=== PATIENT | male | born 1935 | race Caucasian/White ===

== ENCOUNTER 2017-11-18 10:49 | Inpatient (IN) | payer OTHER, MEDICARE ==
[~2017-11-18] VITALS: Ht 172.7 cm; Wt 65.3 kg
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
[2017-11-18 11:11] LABS: ABSOLUTE BASOPHIL COUNT 0 /CUMM (0.0-0.2); ABSOLUTE EOSINOPHIL COUNT 0.1 /CUMM (0.0-0.7); ABSOLUTE LYMPH COUNT 1.2 /CUMM (1.2-3.4); ABSOLUTE MONOCYTE COUNT 0.5 /CUMM (0.10-0.60); BASOPHIL % 0.8 % (0.0-2.0)
[2017-11-18 11:22] LABS: EOSINOPHIL % 1.1 % (0-5); GRANULOCYTE % 63.6 % (42.2-75.2); HEMATOCRIT 43.7 % (42-52); MEAN CORPUSCULAR HGB CONC 33.3 G/DL (33.0-37.0); MEAN CORPUSCULAR VOLUME 96.3 FL (80.0-94.0); MEAN PLATELET VOLUME 8.8 FL (7.4-10.4); PLATELET COUNT 192 /CUMM (130-400); RBC DISTRIBUTION WIDTH 13.8 % (11.5-14.5); RED BLOOD CELL CT 4.54 /CUMM (4.70-6.10)
[2017-11-18 11:42] LABS: WHITE BLOOD CELL COUNT 5.3 /CUMM (4.8-10.8)
--- NOTE | 2017-11-18 11:50 | CT SCAN REPORT ---
EXAMINATION: CT HEAD WITHOUT CONTRAST CLINICAL INFORMATION: Altered mental status. Violent outbursts. COMPARISON: None TECHNIQUE: Contiguous axial imaging was performed from the skull base to vertex without intravenous administration of contrast. DLP: 633 mGy-cm FINDINGS: There is no evidence of acute intracranial hemorrhage or territorial infarction. No abnormal mass effect or midline shift is seen. Stringer to white matter differentiation is well preserved. No extra-axial fluid collections are identified. There is moderate generalized prominence of the ventricles, sulci, and extra-axial CSF spaces as well as moderate hypoattenuation in the bihemispheric white matter. No acute osseous abnormality is visualized. The imaged paranasal sinuses demonstrate moderate mucosal thickening and some aerosolized secretions in the left sphenoid air cell. The mastoid air cells and middle ear cavities are clear. The visualized nasal cavity and nasopharynx appear clear. IMPRESSION: No acute intracranial pathology. Moderate chronic microangiopathy and volume loss. Moderate inflammatory disease within the left sphenoid air cell.
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
--- NOTE | 2017-11-18 18:12 | Admission Certification ---
Admission Certification Certification Statement - As attending physician, I certify that at the time of - admission, based on clinical presentation, severity of - symptoms, need for further diagnostic testing and - therapeutic interventions, and risk of adverse outcomes - without in-hospital treatment, in my clinical assessment, - this patient requires an acute hospital stay for a minimum - of two nights or longer. I have also considered psychsocial - factors such as support system, advanced age, financial - issues, cognitive issues, and failed out-patient treatments, - past re-admission history, safety of patient, and lack of - compliance as applicable. Specific rationale supporting this admission is: The patient presents with acute decline in mental status x 2 weeks with confusion, agitation/violent behavior in setting of early dementia. Delirium needs evaluation for cause- ? infection/etc. Psychiatry and Neurology consults. Admit to general medicine service. May need geriatric psychiatry.
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
[2017-11-18] MEDS ORDERED: FLOMAX0.4 M1 PO (18:50)
[2017-11-18] MEDS ORDERED: MELOXICAM7.5 M1 PO (18:50)
[2017-11-18] MEDS ORDERED: ARICEPT10 M1 PO (18:50)
[2017-11-18 21:37] VITALS: BP 166/90
[2017-11-19 03:40] VITALS: BP 146/88
[2017-11-19 06:20] VITALS: BP 134/76
--- NOTE | 2017-11-19 07:39 | PN- Housestaff ---
Natan FLYNN,Lisa 11/19/17 0739: Subjective Follow-up For: altered mental status -delirium secondary to acutely worsening FTD Subjective: patient notes he has a headache today. He is alert and oriented x 1, confused. no complaints, no events. Review of Systems Constitutional: Reports: no symptoms. Cardiovascular: Reports: no symptoms. Respiratory: Reports: no symptoms. Gastrointestinal: Reports: no symptoms. Neurological/Psychological: Reports: confusion. Objective Last 24 Hrs of Vital Signs/I&O Vital Signs Date Time Temp Pulse Resp B/P B/P Pulse O2 O2 Flow FiO2 Mean Ox Delivery Rate 11/19 1458 Room Air 11/19 1452 Room Air 11/19 1426 97.2 90 20 100/50 97 11/19 1000 98.7 88 20 130/77 96 11/19 0853 79 134/76 11/19 0852 79 134/76 11/19 0620 98.9 79 20 134/76 97 Room Air 11/19 0340 98.1 77 18 146/88 95 Room Air 11/18 2137 98.2 82 20 166/90 99 Room Air Intake & Output 11/19 1600 11/19 0800 11/19 0000 Intake Total 600 100 100 Output Total Balance 600 100 100 Intake, Oral 600 100 100 Patient 144 lb Weight Weight Bed scale Measurement Method Physical Exam General Appearance: Alert, Cooperative, No Acute Distress Skin Temp/Moisture Exam: Warm/Dry Sepsis Skin Exam (color): Normal for Ethnicity Cardiovascular: Regular Rate, Normal S1, Normal S2, No Murmurs Lungs: Clear to Auscultation, Normal Air Movement Abdomen: Normal Bowel Sounds, Soft, No Tenderness, No Hepatospenomegaly Neurological: Normal Speech Current Medications: Current Medications Sig/Valarie Start time Last Medication Dose Route Stop Time Status Admin Acetaminophen 650 MG .STK-MED ONE 11/19 0843 DC PO 11/19 0844 Acetaminophen 650 MG Q6P PRN 11/18 1900 AC 11/19 PO 0852 Acetaminophen 1,000 MG Q6P PRN 11/18 190 AC IV Amlodipine Besylate 5 MG DAILY 11/18 185 AC 11/19 PO 0853 Donepezil HCl 10 MG QPM 11/18 2200 AC 11/19 PO 2110 Enoxaparin Sodium 40 MG DAILY 11/18 1903 AC 11/19 SC 0852 Tamsulosin HCl 0.4 MG DAILY 11/18 1851 AC 11/19 PO 0852 Assessment/Plan Assessment: Patient is a 82-year-old male with past medical history significant for laryngeal carcinoma, dementia, hypertension, benign prostatic hypertrophy was sent to [place] due to acute change in mental status in the background of long- standing dementia and not compliant with medications. His condition has been progressively declining for the past 2 weeks however overnight became more combative and belligerent vital signs at time of admission are significant for high blood pressure, physical examination and labs are unremarkable. B12 normal, TSH 7. Most likely the patient's previously diagnosed dementia, worsened in the setting of non-compliance has resulted in acute behavioral change. Admitted to general medicine floor for evaluation and treatment of the following : Acute delirium Patient did have baseline dementia and not on medications as mentioned above. MMSE in the ER is 10/12 - signifies severe cognitive impairment. * Psych was consulted yesterday and states that the patient needs a comptency evaluation. * Family is afraid patient will hurt himself at home and is unable to care for himself. is terrified to stay with him. * As such, patient cannot leave AMA or otherwise * Causes of reversible dementia have so far been negative. WBC 5.3, chemistry WNL, except TSH 7.07H and FT4 0.94N (sublicinal hypothyroidism), Vitamin B12 > 1000. UA clear, and Utox negative. RPR and Lyme titer are pending. * CT head is negative. * Restart aricept when delirium clears. * As per psych, avoid benzos. He definitely think he might benefit from adding a small dose of antipsychotic agent. * Continue donepezil 10 mg daily * We have placed consult with neuro. They think the cause is worsening FTD which may be violent and verbally abusive. He will need placement as prognosis is not good in terms of cognition. * Consider continue memantine as per neuro recommendations History of BPH Continue tamsulosin Hypertension Start amlodipine 5 mg daily with holding parameters DVT prophylaxis Subcutaneous Lovenox CODE STATUS Full code Problem List: 1. Dementia 2. Acute delirium Pain Ratin Pain Location: na Pain Goal: Remain pain free Pain Plan: na Tomorrow's Labs & Rationales: Mathew Hodge 11/19/17 1258: Attending MD Review Statement Attending Statement Attending MD Statement: examined this patient, discuss w/resident/PA/SEALING AND CANCELING MACHINE OPERATOR, agreed w/resident/PA/SEALING AND CANCELING MACHINE OPERATOR, discussed with family, reviewed EMR data (avail), discussed with nursing, discussed with case mgmt, reviewed images, amended to note Attending Assessment/Plan: Patient seen/examined bedside. Patient is calm, he is forgetful. Sitter bedside for agitation episodes. Pysch and neurology has been consulted. Vitals stable. #Delirium/Dementia- progressive FTD Plan: Admit to general medical floor for evaluation of cause of delirium. Psychiatry consult- outpatient geriatric psych evaluation. Neuro consulted to evaluate dementia- recommend care home placement. May benefit from low-dose anti-psychotic. #HTN- patient with h/o HTN. Has not been on meds. BP may be elevated due to stress of being in hospital/agitation. Monitor #BPH- is normally on Tamsulosin. Plan: c/w Tamsulosin. Daughter is POA. Patient might benefit from care home placement for worsening dementia as per neurology. Consult case management.
[2017-11-19 10:00] VITALS: BP 130/77
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
[2017-11-19 14:26] VITALS: BP 100/50
[2017-11-19 22:27] VITALS: BP 132/70
--- NOTE | 2017-11-19 22:55 | Patient Discharge Instructions ---
Discharge Instructions General Discharge Information You were seen/treated for: ALTERED MENTAL STATUS Special Instructions: 1. PLEASE FOLLOW UP WITH PLASTERER SPOT Diet Continue normal diet: Yes Activity Full Activity/No Limits: Yes Acute Coronary Syndrome Inclusion Criteria At DC or during hospital stay patient has or had the following: ACS DIAGNOSIS No Discharge Core Measures Meds if any: Prescribed or Continued at Discharge Meds if any: NOT Prescribed or Continued at Discharge Congestive Heart Failure Inclusion Criteria At DC or during hospital stay patient has or had the following: CHF DIAGNOSIS No Discharge Core Measures Meds if any: Prescribed or Continued at Discharge Meds if any: NOT Prescribed or Continued at Discharge Cerebrovascular accident Inclusion Criteria At DC or during hospital stay patient has or had the following: CVA/TIA Diagnosis No Discharge Core Measures Meds if any: Prescribed or Continued at Discharge Meds if any: NOT Prescribed or Continued at Discharge Venous thromboembolism Inclusion Criteria VTE Diagnosis No VTE Type NONE VTE Confirmed by (Test) NONE Discharge Core Measures - Per Current guidelines, there needs to be overlap - treatment for the first 5 days of Warfarin therapy. - If discharged on Warfarin prior to 5 days of - overlap therapy, the patient will need to be - assessed for post discharge needs including - *Post discharge parental anticoagulation - *Warfarin and/or parental anticoagulation education - *Follow up date to check INR post discharge At least 5 days overlap therapy as Inpatient No Meds if any: Prescribed or Continued at Discharge Note: Overlap Therapy is Warfarin and Anticoagulant Meds if any: NOT Prescribed or Continued at Discharge
[2017-11-20 06:18] VITALS: BP 122/72
--- NOTE | 2017-11-20 07:47 | PN- Housestaff ---
Natan FLYNN,Lisa 11/20/17 0747: Subjective Follow-up For: altered mental status -delirium secondary to acutely worsening FTD Subjective: patient is still as confused as yesterday. overnight he was agitated and was put in a sanna which was later changed to soft restraints. Review of Systems Constitutional: Reports: no symptoms. Objective Last 24 Hrs of Vital Signs/I&O Vital Signs Date Time Temp Pulse Resp B/P B/P Pulse O2 O2 Flow FiO2 Mean Ox Delivery Rate 11/20 1020 Room Air 11/20 0618 97.5 79 20 122/72 97 Room Air 11/19 2227 98.1 81 20 132/70 97 Room Air 11/19 1458 Room Air 11/19 1452 Room Air 11/19 1426 97.2 90 20 100/50 97 Intake & Output 11/20 1600 11/20 0800 11/20 0000 Intake Total 100 100 Output Total Balance 100 100 Intake, Oral 100 100 Physical Exam General Appearance: Alert, Cooperative, No Acute Distress Cardiovascular: Regular Rate, Normal S1, Normal S2, No Murmurs Lungs: Clear to Auscultation, Normal Air Movement Abdomen: Normal Bowel Sounds, Soft, No Tenderness, No Hepatospenomegaly Neurological: Normal Speech Extremities: No Clubbing, No Cyanosis, No Edema, Normal Pulses, No Tenderness/ Swelling Current Medications: Current Medications Sig/Valarie Start time Last Medication Dose Route Stop Time Status Admin Acetaminophen 650 MG Q6P PRN 11/18 1900 AC 11/19 PO 0852 Acetaminophen 1,000 MG Q6P PRN 11/18 1900 AC IV Amlodipine Besylate 5 MG DAILY 11/18 1854 AC 11/20 PO 0911 Donepezil HCl 10 MG QPM 11/18 2200 AC 11/19 PO 2110 Enoxaparin Sodium 40 MG DAILY 11/18 1904 AC 11/20 SC 0911 Tamsulosin HCl 0.4 MG DAILY 11/18 185 AC 11/20 PO 0911 Assessment/Plan Assessment: Patient is a 82-year-old male with past medical history significant for laryngeal carcinoma, dementia, hypertension, benign prostatic hypertrophy was sent to [place] due to acute change in mental status in the background of long- standing dementia and not compliant with medications. His condition has been progressively declining for the past 2 weeks however overnight became more combative and belligerent vital signs at time of admission are significant for high blood pressure, physical examination and labs are unremarkable. B12 normal, TSH 7. Most likely the patient's previously diagnosed dementia, worsened in the setting of non-compliance has resulted in acute behavioral change. Admitted to general medicine floor for evaluation and treatment of the following : Acute delirium Patient did have baseline dementia and not on medications as mentioned above. MMSE in the ER is 12/30 - signifies severe cognitive impairment. * Psych was consulted yesterday and states that the patient needs a comptency evaluation. * Family is afraid patient will hurt himself at home and is unable to care for himself. is terrified to stay with him. * As such, patient cannot leave AMA or otherwise * Causes of reversible dementia have so far been negative. WBC 5.3, chemistry WNL, except TSH 7.07H and FT4 0.94N (sublicinal hypothyroidism), Vitamin B12 > 1000. UA clear, and Utox negative. RPR and Lyme titer are pending. * CT head is negative. * Restart aricept when delirium clears. * As per psych, avoid benzos. He thinks he might benefit from adding a small dose of antipsychotic agent. * Continue donepezil 10 mg daily * We have placed consult with neuro. They think the cause is worsening FTD which may be violent and verbally abusive. He will need placement as prognosis is not good in terms of cognition. TODAY WE AWAIT PLACEMENT. PATIENT MUST BE OFF WRIST RESTRAINTS 24 HOURS BEFORE LEAVING. History of BPH Continue tamsulosin Hypertension Start amlodipine 5 mg daily with holding parameters DVT prophylaxis Subcutaneous Lovenox CODE STATUS Full code Problem List: 1. Acute delirium 2. Dementia Pain Ratin Pain Location: na Pain Goal: Remain pain free Pain Plan: na Tomorrow's Labs & Rationales: kerry WallsMathew 11/20/17 1351: Attending MD Review Statement Attending Statement Attending MD Statement: examined this patient, discuss w/resident/PA/ASPHALT TILE FLOOR LAYER, agreed w/resident/PA/ASPHALT TILE FLOOR LAYER, discussed with family, reviewed EMR data (avail), discussed with nursing, discussed with case mgmt, reviewed images, amended to note Attending Assessment/Plan: Patient seen/examined bedside. Sitter bedside for agitation episodes. He is on b /l restraints. Pysch and neurology has been consulted. Vitals stable. #Delirium/Dementia- progressive FTD Plan: Psychiatry consult- outpatient geriatric psych evaluation. Neuro consulted to evaluate dementia- recommend exterminator termite placement. May benefit from low-dose anti-psychotic. #HTN- patient with h/o HTN. Has not been on meds. BP may be elevated due to stress of being in hospital/agitation. Monitor #BPH- is normally on Tamsulosin. Plan: c/w Tamsulosin. Daughter is POA,. Patient might benefit from assisted placement for worsening dementia as per neurology. Case management aware and SW consult.
[2017-11-20 14:41] VITALS: BP 130/77
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
[2017-11-20 22:39] VITALS: BP 112/60
[2017-11-21 07:42] VITALS: BP 132/70
--- NOTE | 2017-11-21 08:12 | PN- Housestaff ---
Lisa Gama MD 11/21/17811: Subjective Follow-up For: altered mental status secondary to worsening FTD Subjective: patient is politely and pleasantly confused. he is tolerating being off wrist restraints well. still has safety monitor. Review of Systems Constitutional: Reports: no symptoms. Cardiovascular: Reports: no symptoms. Respiratory: Reports: no symptoms. Gastrointestinal: Reports: no symptoms. Musculoskeletal: Reports: no symptoms. Neurological/Psychological: Reports: confusion. Objective Last 24 Hrs of Vital Signs/I&O Vital Signs Date Time Temp Pulse Resp B/P B/P Pulse O2 O2 Flow FiO2 Mean Ox Delivery Rate 11/21 1345 97.7 94 18 110/60 93 Room Air 11/21 1126 Room Air 11/21 1118 Room Air 11/21 0834 72 132/70 11/21 0834 72 132/70 11/21 0742 98.0 72 20 132/70 97 Room Air 11/20 2239 97.7 71 20 112/60 98 Room Air Intake & Output 11/21 1600 11/21 0800 11/21 0000 Intake Total 800 500 500 Output Total Balance 800 500 500 Intake, Oral 800 500 500 Physical Exam General Appearance: Alert, Cooperative, No Acute Distress Cardiovascular: Regular Rate, Normal S1, Normal S2, No Murmurs Lungs: Clear to Auscultation Abdomen: Normal Bowel Sounds, Soft, No Tenderness Neurological: Normal Speech, Strength at 5/5 X4 Ext, Normal Tone, Sensation Intact, Cranial Nerves 3-12 NL Assessment/Plan Assessment: Patient is a 82-year-old male with past medical history significant for laryngeal carcinoma, dementia, hypertension, benign prostatic hypertrophy was sent to [place] due to acute change in mental status in the background of long- standing dementia and not compliant with medications. His condition has been progressively declining for the past 2 weeks however overnight became more combative and belligerent vital signs at time of admission are significant for high blood pressure, physical examination and labs are unremarkable. B12 normal, TSH 7. Most likely the patient's previously diagnosed dementia, worsened in the setting of non-compliance has resulted in acute behavioral change. Admitted to general medicine floor for evaluation and treatment of the following : Acute delirium Patient did have baseline dementia and not on medications as mentioned above. MMSE in the ER is 10/12 - signifies severe cognitive impairment. * Psych was consulted yesterday and states that the patient needs a comptency evaluation. * Family is afraid patient will hurt himself at home and is unable to care for himself. is terrified to stay with him. * As such, patient cannot leave AMA or otherwise * Causes of reversible dementia have so far been negative. WBC 5.3, chemistry WNL, except TSH 7.07H and FT4 0.94N (sublicinal hypothyroidism), Vitamin B12 > 1000. UA clear, and Utox negative. RPR and Lyme titer are pending. * CT head is negative. * Restart aricept when delirium clears. * As per psych, avoid benzos. He thinks he might benefit from adding a small dose of antipsychotic agent. * Continue donepezil 10 mg daily * We have placed consult with neuro. They think the cause is worsening FTD which may be violent and verbally abusive. He will need placement as prognosis is not good in terms of cognition. He has been off wrist restraints for one day today so we will dc safety monitor and monitor until placement tomorrow. History of BPH Continue tamsulosin Hypertension Start amlodipine 5 mg daily with holding parameters DVT prophylaxis Subcutaneous Lovenox CODE STATUS Full code Problem List: 1. Dementia Pain Ratin Pain Location: na Pain Goal: Remain pain free Pain Plan: na Tomorrow's Labs & Rationales: none Mathew Walls 11/21/17 1251: Attending MD Review Statement Attending Statement Attending MD Statement: examined this patient, discuss w/resident/PA/RUBBER PRINTING MACHINE OPERATOR, agreed w/resident/PA/RUBBER PRINTING MACHINE OPERATOR, discussed with family, reviewed EMR data (avail), discussed with nursing, discussed with case mgmt, reviewed images, amended to note Attending Assessment/Plan: Patient seen/examined bedside. Sitter bedside for agitation episodes. He is off from b/l restraints. Pysch and neurology has been consulted. Vitals stable. #Delirium/Dementia- progressive FTD Plan: Psychiatry consult- outpatient geriatric psych evaluation. Neuro consulted to evaluate dementia- recommend nursing home placement for porgresive declnie in dementia with no improvement for period. May benefit from low-dose anti-psychotic. #HTN- patient with h/o HTN. Has not been on meds. BP may be elevated due to stress of being in hospital/agitation. Monitor #BPH- is normally on Tamsulosin. Plan: c/w Tamsulosin. Daughter is POA,. Patient might benefit from nursing home placement for worsening dementia as per neurology. Case management aware and SW aware.
[2017-11-21 13:45] VITALS: BP 110/60
[2017-11-21 22:08] VITALS: BP 122/60
[2017-11-22 06:35] VITALS: BP 124/74
--- NOTE | 2017-11-22 07:25 | PN- Housestaff ---
Natan FLYNN,Lisa 11/22/17 0725: Subjective Follow-up For: altered mental status secondary to worsening FTD Subjective: patient feeling good today, no complaints. he has been getting up many times throughout the night, restless. he has a residential monitor at the moment, safety monitor was dc'd yesterday. Review of Systems Constitutional: Reports: no symptoms. Neurological/Psychological: Reports: confusion. Objective Last 24 Hrs of Vital Signs/I&O Vital Signs Date Time Temp Pulse Resp B/P B/P Pulse O2 O2 Flow FiO2 Mean Ox Delivery Rate 11/22 1224 97.8 62 20 124/74 11/22 1050 62 124/74 11/22 1049 62 124/74 11/22 0635 97.8 62 20 124/74 97 Room Air 11/21 2208 98.1 73 18 122/60 92 Room Air Intake & Output 11/22 1600 11/22 0800 11/22 0000 Intake Total 100 50 Output Total Balance 100 50 Intake, Oral 100 50 Physical Exam General Appearance: Alert, Cooperative, No Acute Distress Cardiovascular: Regular Rate, Normal S1, Normal S2 Lungs: Clear to Auscultation, Normal Air Movement Abdomen: Normal Bowel Sounds, Soft, No Tenderness, No Hepatospenomegaly Neurological: Normal Speech Extremities: No Edema, Normal Pulses, No Tenderness/Swelling Current Medications: Current Medications Sig/Valarie Start time Last Medication Dose Route Stop Time Status Admin Acetaminophen 650 MG Q6P PRN 11/18 1900 DCD 11/19 PO 0852 Acetaminophen 1,000 MG Q6P PRN 11/18 1900 DCD IV Amlodipine Besylate 5 MG DAILY 11/18 1853 DCD 11/22 PO 1049 Donepezil HCl 10 MG QPM 11/18 2200 DCD 11/21 PO 2126 Enoxaparin Sodium 40 MG DAILY 11/18 1903 DCD 11/22 SC 1050 Tamsulosin HCl 0.4 MG DAILY 11/18 185 DCD 11/22 PO 1050 Assessment/Plan Assessment: Patient is a 82-year-old male with past medical history significant for laryngeal carcinoma, dementia, hypertension, benign prostatic hypertrophy was sent to [place] due to acute change in mental status in the background of long- standing dementia and not compliant with medications. His condition has been progressively declining for the past 2 weeks however overnight became more combative and belligerent vital signs at time of admission are significant for high blood pressure, physical examination and labs are unremarkable. B12 normal, TSH 7. Most likely the patient's previously diagnosed dementia, worsened in the setting of non-compliance has resulted in acute behavioral change. Admitted to general medicine floor for evaluation and treatment of the following : Acute delirium Patient did have baseline dementia and not on medications as mentioned above. MMSE in the ER is 12/30 - signifies severe cognitive impairment. * Psych was consulted and states that the patient needs a comptency evaluation. * Family is afraid patient will hurt himself at home and is unable to care for himself. is terrified to stay with him. * As such, patient cannot leave AMA or otherwise * Causes of reversible dementia have so far been negative. WBC 5.3, chemistry WNL, except TSH 7.07H and FT4 0.94N (sublicinal hypothyroidism), Vitamin B12 > 1000. UA clear, and Utox negative. RPR and Lyme titer are pending. * CT head is negative. * Restart aricept when delirium clears. * As per psych, avoid benzos. He thinks he might benefit from adding a small dose of antipsychotic agent. * Continue donepezil 10 mg daily * We have placed consult with neuro. They think the cause is worsening FTD which may be violent and verbally abusive. He will need placement as prognosis is not good in terms of cognition. He has been off wrist restraints and safety monitor. monitoring and evaluation advisor overnight. Patient set to go to facility today. History of BPH Continue tamsulosin Hypertension Start amlodipine 5 mg daily with holding parameters DVT prophylaxis Subcutaneous Lovenox CODE STATUS Full code Problem List: 1. Acute delirium 2. Dementia Pain Ratin Pain Location: na Pain Goal: Remain pain free Pain Plan: na Tomorrow's Labs & Rationales: kerry WallsMathew 11/22/17 1307: Attending MD Review Statement Attending Statement Attending MD Statement: examined this patient, discuss w/resident/PA/PETROLEUM SUPPLY SPECIALIST, agreed w/resident/PA/PETROLEUM SUPPLY SPECIALIST, discussed with family, reviewed EMR data (avail), discussed with nursing, discussed with case mgmt, reviewed images, amended to note Attending Assessment/Plan: Patient seen/examined bedside. monitoring and evaluation advisor. Pysch and neurology has been consulted. Vitals stable. #Delirium/Dementia- progressive FTD Plan: Psychiatry consult- outpatient geriatric psych evaluation. Neuro consulted to evaluate dementia- recommend senior care placement for porgresive declnie in dementia with no improvement for period. May benefit from low-dose anti-psychotic. #HTN- patient with h/o HTN. Has not been on meds. BP may be elevated due to stress of being in hospital/agitation. Monitor #BPH- is normally on Tamsulosin. Plan: c/w Tamsulosin. Daughter is POA, Patient might benefit from senior care placement for worsening dementia as per neurology. Case management aware and SW aware.
[2017-11-22] MEDS ORDERED: AMLODIPINE BESYL5 M1 PO (08:40)
--- NOTE | 2017-11-22 10:54 | Discharge Summary ---
Visit Information Visit Dates Admission Date: 11/18/17 Discharge Date: 11/22/17 Hospital Course Course Attending Physician: Mathew Walls MD Primary Care Physician: Oh FLYNN,Lei Simons Hospital Course: Patient is a 82-year-old male with past medical history significant for laryngeal carcinoma, dementia, hypertension, benign prostatic hypertrophy was sent to [place] due to acute change in mental status in the background of long- standing dementia and not compliant with medications. His condition has been progressively declined for the past 2 weeks however overnight became more combative and belligerent DELICATESSEN CLERK. vital signs at time of admission are significant for high blood pressure, physical examination and labs are unremarkable. B12 normal, TSH 7, PRP negative. Admitted to general medicine floor Acute delirium After excluding other causes and imaging brain, it is evident that underlying worsening of frontotemporal dementia is the reason behind his acute delirium. He benefits from placement in a delmentia unit. He was on donepezil previously which was continued. Neuro consulted and reinforced our recommendations. He remained relatively pleasant walking around without any combative behaviour during his hospital stay. 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 Now his condition worsened requiring placement. Daughter also found to have early alzheimers. History of BPH Continued tamsulosin Hypertension Start amlodipine 5 mg daily during this admission. BP stabilized after that. DVT prophylaxis Subcutaneous Lovenox CODE STATUS full code Allergies: Coded Allergies: No Known Allergies (08/21/16) Disposition Summary Disposition Principal Diagnosis: acute delirium secondary to frontotemporal dementia Additional Diagnosis: BPH HTN Discharge Disposition: SNF Discharge Instructions General Discharge Information Code Status: Full Code Patient's Diet: as tolerated Patient's Activity: as tolerated Follow-Up Instructions/Appts: Please follow up with your PCP and engineering group manager Medications at Discharge Discharge Medications: Stop taking the following medications: Meloxicam (Meloxicam) 7.5 MG TABLET ORAL DAILY Continue taking these medications: Donepezil HCl (Aricept) 10 MG TABLET 1 Tablet ORAL Every night Comments: Last Taken:11/21/17 Time:2125 Tamsulosin HCl (Flomax) 0.4 MG CAP.ER.24H 1 Capsule ORAL DAILY Comments: Last Taken:11/22/17 Time:1050 AM Start taking the following new medications: Amlodipine Besylate (Amlodipine Besylate) 5 MG TABLET 1 Tablet ORAL DAILY Qty = 30 No Refills Comments: Last Taken:11/22/17 Time:1050 AM Copies To: Oh FLYNN,Lei Simons Attending MD Review Statement Documenting Attending: Mathew Walls MD Other Findings: #Delirium/Dementia- progressive FTD Plan: Psychiatry consult- outpatient geriatric psych evaluation. Neuro consulted to evaluate dementia- recommend long-term placement for porgresive declnie in dementia with no improvement for period. #HTN- patient with h/o HTN. Has not been on meds. BP may be elevated due to stress of being in hospital/agitation. Monitor #BPH- is normally on Tamsulosin. Plan: c/w Tamsulosin. Daughter is POA, Patient benefit from exterminator helper placement for worsening dementia as per neurology. Patient is calm and medically stable for discharge.
[2017-11-22 12:24] VITALS: BP 124/74
== END 2017-11-22 13:45 | DRG 884 ==
LOC: ERH 10:49 → 2NA 14:53 → ERHI 14:53 → ENRESERV 18:44 → 2NA 20:40 → ENPENDDIS 11-22 12:36 → 2NA 11-22 13:45
PROVIDERS: Emergency Medicine
DX: F03.90 Unspecified dementia, unspecified severity, without behavioral disturbance, psychotic disturbance, mood disturbance, and anxiety (principal); F05 Delirium due to known physiological condition; N40.0 Benign prostatic hyperplasia without lower urinary tract symptoms; I10 Essential (primary) hypertension; Z85.21 Personal history of malignant neoplasm of larynx; Z91.19 Patient's noncompliance with other medical treatment and regimen
CPT/HCPCS: 2NAP; 86618; 80307; 81003; 93005; 93010; 99232; G0480; J1650